=== PATIENT | female | born 1945 | race Caucasian/White ===

== ENCOUNTER 2023-04-03 06:13 | Observation (INO) ==
--- NOTE | 2023-03-24 10:35 | PAT Medication Instructions ---
Medication Instructions Date of Service March 24, 2023 Home Medications calcium phosphate,dibasic 77 mg-vitamin D3 400 unit tablet 1 tab PO QDL fexofenadine 180 mg tablet 180 mg PO QAM gabapentin 100 mg tablet 200 mg PO HS gabapentin 100 mg tablet 300 mg PO QAM lisinopril 40 mg tablet 40 mg PO QAM meloxicam 7.5 mg tablet 7.5 mg PO BID metoprolol tartrate 25 mg tablet 25 mg PO QAM multivitamin 1 tab PO QAM simvastatin 40 mg tablet 40 mg PO HS ASK your surgeon for instructions meloxicam 7.5 mg tablet 7.5 mg PO BID DO NOT take the morning of surgery calcium phosphate,dibasic 77 mg-vitamin D3 400 unit tablet 1 tab PO QDL fexofenadine 180 mg tablet 180 mg PO QAM lisinopril 40 mg tablet 40 mg PO QAM multivitamin 1 tab PO QAM Take morning of surgery With a small sip of water, OTHERWISE NOTHING TO EAT OR DRINK AFTER MIDNIGHT: gabapentin 100 mg tablet 300 mg PO QAM metoprolol tartrate 25 mg tablet 25 mg PO QAM Take evening before surgery gabapentin 100 mg tablet 200 mg PO HS simvastatin 40 mg tablet 40 mg PO HS Other Notes If you have any questions please call us at [phone] or [phone] or [phone] or [phone]
--- NOTE | 2023-03-26 09:18 | Anesthesiology Consultation ---
Date of Service March 26, 2023 Assessment & Plan (1) Encounter for pre-operative examination: - COVID screening: Per assessment on 03/26: No known COVID-19 positive contacts or current COVID-19 related symptoms. Travel screen negative. Patient vaccinated. At surgeon discretion if preop Covid testing being done. - Outpatient joint assessment: Pt currently scheduled for inpatient pathway. If surgeon requests review for outpatient joint pathway, patient is not recommended candidate for outpatient joint program from anesthesia standpoint. - Dextroscoliosis/arthritis/DDD: Pt concerned with SAB/neuraxial anesthesia given history of lumbar issues. Lumbar x-ray from 10/2022 scanned into chart. Reviewed neuraxial anesthesia vs. GA. She states she is comfortable with either at this point and indicates she would defer to the type anesthesia decides would be recommended in her case- advised to discuss options further AM DOS. - Patient acceptable risk for surgery pending surgeon-ordered PCP preop evaluation (Yane Kemp, appt 03/27). Chart Review Chart Review: Patient seen in Pre Admission Testing Teaching & Discussion Pre-Anesthesia Teaching/Discussion Notes: Instructed NPO after midnight before surgery,except medications with 15 cc of water. Medication instructions provided according to the PAT guidelines. History Surgery Operation Date: 04/03/23 10:25 Proposed Procedures p Right Total Hip Arthroplasty - Andrew Kiser MD Height/Weight Height: 4 ft 10 in Weight: 67.9 kg Allergies Allergy/AdvReac Type Severity Reaction Status Date / Time Penicillins Allergy Intermediate hives Verified 03/24/23 08:45 Sulfa (Sulfonamide Allergy Intermediate hives Verified 03/24/23 08:45 Antibiotics) Medications Home Medications Medication Instructions Recorded Confirmed Last Taken calcium phosphate,dibasic 77 1 tab PO QDL 03/24/23 03/24/23 Unknown mg-vitamin D3 400 unit tablet fexofenadine 180 mg tablet 180 mg PO QAM 03/24/23 03/24/23 Unknown gabapentin 100 mg tablet 200 mg PO HS 03/24/23 03/24/23 Unknown gabapentin 100 mg tablet 300 mg PO QAM 03/24/23 03/24/23 Unknown lisinopril 40 mg tablet 40 mg PO QAM 03/24/23 03/24/23 Unknown meloxicam 7.5 mg tablet 7.5 mg PO BID 03/24/23 03/24/23 Unknown metoprolol tartrate 25 mg tablet 25 mg PO QAM 03/24/23 03/24/23 Unknown multivitamin 1 tab PO QAM 03/24/23 03/24/23 Unknown simvastatin 40 mg tablet 40 mg PO HS 03/24/23 03/24/23 Unknown lifitegrast 5 % eye drops in a 1 drp ophthalmic (eye) BID 03/26/23 03/26/23 Unknown dropperette (Xiidra) Past Medical History Medical History Environmental and seasonal allergies History of COVID-19 08/2022- sore throat, dry cough; resolved HTN (hypertension) Hyperlipidemia Exercise / Class Metabolic Activity III < 4 Walking/Shop/Light housework (one FS (no CP, no SOB)- occasional stair use but does go slowly in setting of worsening hip pain) Past Family History Family History Other No family history of adverse response to anesthesia Past Surgical History Surgical History History of tonsillectomy and adenoidectomy Hx of colonoscopy Hx of hysterectomy Nausea and vomiting after administration of anesthetic agent N/V day after last colonoscopy- thinks r/t lack of caffeine Past Anesthesia History No Hx of Anesthesia Complications (except single episode PONV (colonoscopy) and No Family Hx of Anesthesia Complications History of PONV History of PONV (singe episode (colonoscopy)) and Hx of Motion Sickness Social History Smoking Status: Never smoker Do You Dip or Chew Tobacco: No Hx Alcohol Use: Yes alcohol intake frequency: holidays/special occasions only Hx Substance Use: No substance use type: does not use Review of Systems Patient denies chest pain, shortness of breath, dyspnea on exertion, fever, chills, cough, wheezing, palpitations. Physical Exam Vital Signs VITALS BP 135/82 P 72 TEMP 98.3 SP02 95%RA RESP 16 PHYSICAL Mildly decreased cervical extension range of motion. Full TMJ range of motion. TMD 3 finger breaths Mallampati Score 3 Dentition: missing molars, + crowns Lungs: clear throughout to auscultation Cardiac: regular rate and rhythm, no murmurs noted Spine: kyphoscoliosis Carotid arteries: negative bruit Extremities: no LE edema Lab Results Anesthesia Preop Results Results Anesthesia Widget: WBC 4.95 K/ul (4.8-10.8) 03/26/23 Hgb 13.0 g/dl (12.0-16.0) 03/26/23 Hct 36.2 % (37.0-47.0) L 03/26/23 Plt 264 K/uL (130-400) 03/26/23 Na 136 mmol/L (136-145) 03/26/23 K 4.1 mmol/L (3.5-5.1) 03/26/23 Cl 104 mmol/L (98-107) 03/26/23 CO2 26 mmol/L (21-32) 03/26/23 BUN 17 mg/dl (6-23) 03/26/23 Creat 0.65 mg/dl (0.6-1.2) 03/26/23 Glucose Level 81 mg/dl (70-99(Fasting)) 03/26/23 PT 10.8 Seconds (9.0-12.0) 03/26/23 PTT 25.6 Seconds (21.0-31.0) 03/26/23 INR 1.0 (0.9-1.1) 03/26/23 Urine Color Yellow 03/26/23 Urine Appearance Clear (Clear) 03/26/23 Urine pH 8.0 (4.5-7.5) H 03/26/23 Urine Specific [place] 1.013 (1.000-1.030) 03/26/23 Urine Protein Negative (Negative) 03/26/23 Urine Glucose (UA) Negative (Negative) 03/26/23 Urine Ketones Negative (Negative) 03/26/23 Urine Blood Negative (Negative) 03/26/23 Urine Nitrite Negative (Negative) 03/26/23 Urine Bilirubin Negative (Negative) 03/26/23 Urine Urobilinogen Negative (Negative) 03/26/23 Urine Leukocyte Esterase Negative (Negative) 03/26/23 Blood Type A Negative 03/26/23 Antibody Screen NEGATIVE 03/26/23 Testing Electrocardiogram Date: 03/26/23 NSR at 66bpm. Other Testing Lumbar spine xray (10/14/22) Five lumbar-type vertebral bodies. Lumbar dextroscoliosis. Mild retrolisthesis of L2 on L3 and L3 on L4. [id number] multilevel intervertebral disc degeneration throughout the lumbar spine, greatest L1-2, L2-3, and L5-S1. Multilevel facet osteoarthritis. No fracture or aggressive osseous lesion identified. Mild bilateral sacroiliac osteoarthritis. Osteoarthritis of both hips, severe on the right and [id number] on the left. COVID-19 Risk Screen Screening Information COVID-19 Screen Date: 03/26/23 Exposure 21 Days Family/Household +COVID Last 21 Days: No Exposure 10 Days Any COVID Exposure Last 10 Days: No Symptoms Last 10 Days Experienced COVID Sx Last 10 Days: No + COVID 0-90 Days COVID + in Last 0-90 Days: No
[~2023-04-03 06:13] MED LIST: ACETAMINOPHEN 500 MG TAB PO SCH; ALLERGY Noted to ORDERED Medication SCH; FAMOTIDINE 20 MG TAB PO SCH; LR 500ML BOLUS, THEN 15ML/HR IV SCH; LR 60ML/HR IV SCH; ROPIVACAINE 0.5% HCL/PF 150 MG, BUPIVACAINE 0.75% MPF 20 ML, EPINEPHrine 0.15 MG, Ketor... INFIL SCH; Scopolamine 1 MG TDSY TD SCH; TRANEXAMIC ACID 1,000 MG **IV Intra-op IV SCH; TRANEXAMIC ACID 1,000 MG **IV Pre-op IV SCH; ceFAZolin 2000MG 2,000 MG/15 ML SYR IV SCH; dexAMETHasone 4 MG TAB PO SCH; traMADol HCL 50 MG TABLET PO SCH
[2023-04-03] MEDS ORDERED: BUPIVACAINE 0.5 % 5 MG/1 ML PF 10ML VIAL ONE (06:24)
[2023-04-03] MEDS ORDERED: Nursing to Pharmacy Communication SCH (07:00)
[2023-04-03] MEDS ORDERED: MIDAZOLAM HCL 1 MG/ML 2ML VIAL ONE (07:19)
[2023-04-03] MEDS ORDERED: PROPOFOL IV EMULSION 10 MG/ML 20 ML VIAL IV ONE ×3 (07:19→08:37)
[2023-04-03] MEDS ORDERED: ONDANSETRON INJ 2 MG/ML 2 ML VIAL ONE (07:19)
[2023-04-03] MEDS ORDERED: LIDOCAINE 2% 2 ML VIAL/AMP(20MG/ML) INFIL ONE (07:19)
[2023-04-03] MEDS ORDERED: DEXAMETHASONE SOD INJ 4 MG/ML VIAL ONE (07:19)
[2023-04-03] MEDS ORDERED: fentaNYL citrate PF 100 MCG/2 ML VIAL ONE (07:20)
[2023-04-03] MEDS ORDERED: ORTHO JOINT ANESTHETIC ONE (07:51)
--- NOTE | 2023-04-03 08:02 | History & Physical Bridge Note ---
Date of Service April 03, 2023 History & Physical Bridge Note I have examined the patient, reviewed the History & Physical and in the interval since the performance of the History & Physical I have noted the following changes of clinical significance: no changes noted
[2023-04-03] MEDS: ceFAZolin 2000MG 2,000 MG/15 ML SYR IV SCH (08:20)
[2023-04-03] MEDS ORDERED: ATROPINE SULFATE 0.1 MG/ML 10ML SYR IV PRN (08:57)
[2023-04-03] MEDS ORDERED: ONDANSETRON INJ 2 MG/ML 2 ML VIAL IV PRN ×2 (08:57→10:06)
[2023-04-03] MEDS ORDERED: HYDROmorphone INJ 1 MG/ML SYRINGE IV PRN ×2 (08:57→10:06)
[2023-04-03] MEDS ORDERED: ePHEDrine sulfate 50 MG/ML AMP IV PRN (08:57)
[2023-04-03] MEDS ORDERED: fentaNYL citrate PF 100 MCG/2 ML VIAL IV PRN (08:57)
[2023-04-03] MEDS ORDERED: ePHEDrine sulfate 50 MG/ML SYR ONE (09:11)
--- NOTE | 2023-04-03 09:51 | Operative Report ---
Post Operative Report Pre & Post Diagnosis Pre-op diagnosis: Right hip arthritis Postoperative diagnosis: Right hip arthritis Operation Date: 04/03/23 08:15 I identified the patient and participated in the time-out.: Yes Procedure Operation Date: 04/03/23 08:15 Right total hip arthroplasty Surgeon Andrew Kiser MD Street Vendor Bria Voss PA-C. Estimated Blood Loss 50 Findings Consistent with Post-Op Diagnosis Specimens None Anesthesia Type Spinal MAC Complications none Disposition Disposition: Recovery Room Indications 77-year-old female with right hip arthritis refractory to conservative management. X-rays demonstrate smhy-ce-snei disease. I had a long discussion with her about the risks and benefits of surgery, alternatives, and expected outcomes. After reviewing all these she elected proceed with surgery. All questions were answered. Informed consent was signed. Description of Procedure Patient was identified in the preoperative holding area where the surgical site, right hip, was marked. A spinal anesthetic was placed, then the patient was brought back to the main operating room, placed in the operating table and moved into the lateral decubitus position. Axillary roll was placed. All bony prom inences were padded. Perioperative antibiotics and tranexamic acid 1 gram IV were administered. Operative extremity was prepped and draped in the normal sterile fashion. Prior to incision a multidisciplinary timeout was called. All in the room were in agreement. We began by making an incision for a posterior approach to the hip. We dissected down through subcutaneous tissues to the level of the fascia. The fascia was incised in line with the incision. Charnley bow was placed. Fatty tissue was reflected posteriorly off the back of the greater trochanter to expose the piriformis and short external rotators of the hip. The piriformis and short external rotators were dissected off the posterior aspect of the hip. A box cut was made in the capsule. Inferior hip capsule was released off the femur. The femoral head was dislocated. The femoral neck cut was made at our preoperative template. The acetabulum was then exposed. The labrum was sharply excised. Contents of the cotyloid fossa were removed with electrocautery. We then began reaming at a size 8 mm less than our preoperative template. We reamed up by [address] the way up to a size 50 mm cup. This gave us good bleeding cancellus bone circumferentially. The acetabulum was then irrigated out and dried. The real [place] Gription cup was then impacted down into position with 45 degrees of lateral opening and 25 degrees of anteversion. A single cancellous bone screw was placed up into the ilium. Excellent fixation was obtained. A trial liner for a 43 mm outer diameter dual mobility femoral head was then placed. Next we turned our attention to the femur. The lateral neck was removed with a box osteotome. Intramedullary guide was used followed by the lateralizing reamer. We then reamed up to a size 3 Coles stem. We then broached all the way up to a size 3. We began trialing with a standard offset neck and a +4 head. Hip was reduced. Leg lengths were symmetric. The hip was stable in extension and external rotation, and stable in the sleeper position. At 90 degrees of hip flexion the hip could be internally rotated 60 degrees before levering out of the cup. I was very happy with the stability exam. Therefore the hip was dislocated and the femoral trial was removed. The acetabulum was re-exposed, and the trial liner was removed. A metal dual mobility 50/43 liner was then impacted into the shell. The locking mechanism was checked to ensure that it had engaged which it had. The femur was re-exposed. The femoral canal was irrigated and dried. The real size 3 standard offset Coles femoral stem was opened up. This was impacted down into position. It sat at the same level as the femoral trial. Therefore the dual mobility head, including a 43/22 polyethylene outer component and a 22 mm metal in her head with a +4 offset was opened up, assembled on the back table, and gently impacted down onto the trunnion. The hip was atraumatically reduced. Another 1 gram of IV tranexamic acid was started prior to closure. The wound was irrigated out with sterile Betadine solution. The periarticular injection cocktail was then placed. The short external rotators, piriformis, and posterior capsule were repaired through drill holes in the greater trochanter using #2 Vicryl. The fascia was run with a looped #1 PDS. The subcutaneous layer was closed with #1 PDS. The dermal layer was closed with 2-0 Vicryl. Zip line was used for the skin followed by a Silverlon dressing. A compressive dressing was then placed. The patient was then rolled supine. Leg lengths were rechecked and were symmetric. An abduction pillow was placed. Sedation was lifted and the patient was transferred to the recovery room in stable condition. Summary of implants: Depuy [place] Gription Acetabular Shell Sector Cup, 50 mm outer diameter [place] Cancellous bone screw, 6.5 x 40 mm Cairo 50/43 metal dual mobility liner Bi mentum polyethylene liner 43/22 outer head 22+4 metal inner head DePuy Coles Femoral stem with [place], 12/14 taper, size 3 standard offset Postoperative course: Patient will be admitted to the hospital from the recovery room. Patient will be weightbearing as tolerated with posterior hip precautions. Aspirin for DVT prophylaxis I attest to the content of the Intraoperative Record and any orders documented therein. Any exceptions are noted below.
--- NOTE | 2023-04-03 10:03 | Operative Report ---
Post Operative Report Pre & Post Diagnosis Operation Date: 04/03/23 08:15 Pre-Op Diagnosis: Right hip Osteoarthritis Post-Op Diagnosis: Right hip Osteoarthritis I identified the patient and participated in the time-out.: Yes Procedure Operation Date: 04/03/23 08:15 Actual Procedures p Right Total Hip Arthroplasty(Right) - Andrew Kiser MD Surgeon Dr. Andrew Kiser Machine Etcher Bria Voss PA-C. no fellow available Estimated Blood Loss 50 Findings Consistent with Post-Op Diagnosis Specimens none Complications none Disposition Accompanied Patient To Recovery: No Description of Procedure Please refer to Dr. Kiser's operative note for specifics. I was present during the entire case. I assisted with positioning, draping, retracting, wound closure and dressing application. Assisted transferring pt to liter. Patient left the OR in stable condition I attest to the content of the Intraoperative Record and any orders documented therein. Any exceptions are noted below.
[2023-04-03] MEDS ORDERED: bisacodyL 10 MG SUPP PR PRN (10:06)
[2023-04-03] MEDS ORDERED: NALOXONE HCL 0.4 MG/1 ML VIAL/CARP IV PRN (10:06)
[2023-04-03] MEDS ORDERED: MAGNESIUM HYDROXIDE SUSP 30 ML UDC PO PRN (10:06)
[2023-04-03] MEDS ORDERED: METOCLOPRAMIDE HCL INJ 5 MG/ML 2 ML VIAL IV PRN (10:06)
[2023-04-03] MEDS ORDERED: ESMOLOL HCL INJ 10 MG/ML 10ML VIAL IV ONE (10:41)
[2023-04-03] MEDS ORDERED: SODIUM CHLORIDE 0.9% PF INJ 10 ML VIAL ONE (10:41)
--- NOTE | 2023-04-03 11:23 | Anesthesiology Progress Note ---
Date of Service April 03, 2023 Anesthesia Post Procedure Vital Signs Vital Signs: Temp Pulse Pulse Resp BP BP Pulse Ox 04/03/23 10:21 36.3 C L 68 18 110/63 95 04/03/23 11:00 75 14 120/62 94 04/03/23 10:50 36.0 C L 71 14 123/61 94 04/03/23 10:40 70 12 122/59 L 94 04/03/23 10:10 65 16 129/65 98 04/03/23 10:30 67 14 126/61 94 04/03/23 10:20 73 19 120/66 97 04/03/23 10:00 67 16 111/59 L 98 04/03/23 09:58 36.0 C L 76 14 106/57 L 96 04/03/23 06:47 36.5 C 71 18 141/75 H 93 O2 Del Method O2 Flow Rate 04/03/23 10:21 Room Air 04/03/23 11:00 Room Air 04/03/23 10:50 Room Air 04/03/23 10:40 Room Air 04/03/23 10:10 Oxymask 3 04/03/23 10:30 Room Air 04/03/23 10:20 Room Air 04/03/23 10:00 Oxymask 6 04/03/23 09:58 Oxymask 6 04/03/23 06:47 Room Air Pain Intensity Right Hip: Pain Intensity: 0 Transfer of Care Handoff Completed per policy Notes Mental Status: alert / awake / arousable and participated in evaluation Nausea / Vomiting: adequately controlled Pain: adequately controlled Airway Patency, RR, SpO2: stable & adequate BP & HR: stable & adequate Hydration State: stable & adequate Neuraxial Anesthesia: was administered Anesthetic Complications: no major complications apparent and Pt Satisfied with anesthetic care
[2023-04-03] MEDS: oxyCODONE HCL IR 5 MG TAB (IMMEDIATE RELEASE) PO PRN ×2 (11:55→17:11)
[2023-04-03] MEDS: SODIUM CHLORIDE 0.9% 1000ML 1,000 ML IV SCH ×2 (11:57→20:23)
[2023-04-03] MEDS: ACETAMINOPHEN 500 MG TAB PO SCH ×2 (13:39→21:26)
[2023-04-03] MEDS: Scopolamine CHECK PATCH PLACEMENT SCH (15:58)
--- NOTE | 2023-04-03 16:12 | XRay Report ---
SINGLE VIEW PELVIS; SINGLE VIEW RIGHT HIP CLINICAL HISTORY: Postoperative examination. FINDINGS: An AP portable view of the hips and lower pelvis with a crosstable lateral portable view of the right hip are compared to study dated 03/26/2023. A bipolar right hip arthroplasty is in near-arely tomic alignment. A single cortical lag screw transfixes the acetabular cup. No acute fracture is iden tified. There are expected postoperative changes overlying the right hip including subcutaneous gas a nd soft tissue swelling. Moderate arthritic change is seen in the left hip. There is degenerative scl erosis of the sacroiliac joints and pubic symphysis. IMPRESSION: Expected postoperative findings status post right hip arthroplasty. No acute fracture is seen. ACT 112: Negative or not required by law. Electronically signed by: Elliott Ceron M.D. 04/03/2023 4:11 PM
[2023-04-03] MEDS: ASPIRIN 81 MG ECTAB PO SCH (20:10)
[2023-04-03] MEDS: MELOXICAM 7.5 MG TAB PO SCH (20:11)
[2023-04-03] MEDS: DOCUSATE SODIUM 100 MG CAP PO SCH (20:23)
[2023-04-03] MEDS ORDERED: SENNA 8.6 MG TAB PO SCH (21:00)
[2023-04-03] MEDS ORDERED: SIMVASTATIN 40 MG TAB PO SCH (21:00)
[2023-04-03] MEDS ORDERED: GABAPENTIN 100 MG CAP PO SCH (21:00)
[2023-04-04] MEDS: ceFAZolin 2000MG 2,000 MG/15 ML SYR IV SCH (00:38)
[2023-04-04] MEDS: Scopolamine CHECK PATCH PLACEMENT SCH ×2 (00:38→07:15)
[2023-04-04] MEDS: oxyCODONE HCL IR 5 MG TAB (IMMEDIATE RELEASE) PO PRN ×2 (01:06→07:14)
[2023-04-04] MEDS: ACETAMINOPHEN 500 MG TAB PO SCH (05:42)
[2023-04-04 06:24] LABS: Hematocrit (blood only) 29.9 % (37.0-47.0); Hemoglobin 10.5 g/dl (12.0-16.0); Mean Corpuscular Hemoglobin 34.4 pg (25.0-34.0); Mean Corpuscular Hgb Conc 35.1 g/dL (32.0-36.0); Mean Platelet Volume 10.4 fL (9.4-12.4); Platelet Count 190 K/uL (130-400); RDW Coefficient of Variation 12.6 % (11.5-14.5); RDW Standard Deviation 44.1 fL (36.4-46.3); Red Blood Count 3.05 M/uL (4.20-5.40); White Blood Count 10.58 K/ul (4.8-10.8)
[2023-04-04 06:50] LABS: BUN Creatinine Ratio 17.9 (10-20); Calcium 8.3 mg/dl (8.6-10.3); Creatinine Clr Calc Pharmacy 69.2 ml/min; Est GFR (Non-African American) 90.6 ml/min; Potassium 4.2 mmol/L (3.5-5.1)
[2023-04-04] MEDS: MELOXICAM 7.5 MG TAB PO SCH (07:18)
[2023-04-04] MEDS ORDERED: FEXOFENADINE HCL 180 MG TAB PO SCH (09:00)
[2023-04-04] MEDS ORDERED: METOPROLOL TARTRATE 25 MG TAB PO SCH (09:00)
[2023-04-04] MEDS ORDERED: MULTIVITAMIN TAB PO SCH (09:00)
[2023-04-04] MEDS ORDERED: GABAPENTIN 100 MG CAP PO SCH (09:00)
[2023-04-04] MEDS ORDERED: lisinopril 40 MG TAB PO SCH (09:00)
[2023-04-04] MEDS ORDERED: NON-FORMULARY MEDICATION (Multivitamin Tablet) PO SCH (09:00)
[2023-04-04] MEDS: DOCUSATE SODIUM 100 MG CAP PO SCH (09:01)
[2023-04-04] MEDS: ASPIRIN 81 MG ECTAB PO SCH (09:01)
--- NOTE | 2023-04-04 09:43 | Orthopedic Progress Note ---
Date of Service April 04, 2023 Assessment & Plan (1) S/P total hip arthroplasty: Plan: Patient is postop day 1 status post right total hip arthroplasty Patient is doing well. She her pain is controlled with oral medication. She will continue with hip precautions She will continue with weightbearing as tolerated with walker while maintaining hip precautions Recommend 81 mg aspirin twice a day for DVT prophylaxis She will continue with DANIELE hose for 6 weeks Continue with abduction pillow for 6 weeks She was advised on keeping the dressing intact may get a shower not to submerge in water She will be discharged today to home with home health services She will keep her follow-up appointment as scheduled and discharge instructions PDMP was queried prescription for narcotic was sent. She was advised she may continue with Tylenol for in between and to take sparingly. We discussed dosage side effects and risk. She is on meloxicam twice a day we will continue with this. Patient's questions were answered to her satisfaction. She was advised if any concerns or questions to contact the office sooner. Patient was given the number and verbalized understanding Present on Admission?: Yes Admission and Anticipated Discharge Date Admission Date: April 03, 2023 Subjective Patient is a 77-year-old female who is an inpatient Dr. Jeffery garnica. She is status post a right total hip arthroplasty postop day 1. She was seen bedside this AM. She is alert and oriented x3 no acute distress. She is pleasant and conversive. She states she has mild pain in the right hip and rates it as 5- 6/10. She states she was is given pain medication and feels this is helping her. She states she feels she is ready to go home. Physical therapy had been in and she feels she is doing well with ambulating. She is aware and able to verbalize her hip precautions. She offers no concerns. She denies any fever, c hills, chest pain, shortness of breath dizziness, nausea or vomiting. She denies any calf pain. Review of Systems Review of Systems: Please refer to HPI Physical Exam Physical Exam: General: Patient is alert and oriented x3 no acute distress conversive and pleasant Integumentary/musculoskeletal:. Right lower extremity dressed that is intact. Negative for any drainage on the outer layer. She has small amount of drainage on the Silverlon dressing. This was removed. The incision is well approximated with pernell. Negative for any active bleeding or drainage. Negative for any erythema. New dressing applied, Silverlon. Patient has mild tenderness surrounding the area negative for any fluctuance or induration. Patient is able to actively flex hip with standing. She returned to seated position. She is able to tolerate knee extension and flexion ankle dorsiflexion plantarflexion all without pain. She has no calf tenderness. Her calf is soft. Negative Homans. Dorsal pedis pulses 2+. Right lower extremity is neurovascular intact. Results & Data Vital Signs (Past 12 Hours) Vital Signs Temp Pulse Resp BP Pulse Ox O2 Del Method 04/04/23 07:03 36.6 C 68 18 170/74 H 98 Room Air 04/04/23 02:42 36.5 C 68 16 110/65 97 Room Air 04/03/23 23:07 36.5 C 69 16 121/69 97 Room Air Laboratory Results 04/04/23 04/04/23 Range/Units 05:32 05:32 WBC 10.58 (4.8-10.8) K/ul RBC 3.05 L (4.20-5.40) M/uL Hgb 10.5 L (12.0-16.0) g/dl Hct 29.9 L (37.0-47.0) % MCV 98.0 (80.0-100.0) fL MCH 34.4 H (25.0-34.0) pg MCHC 35.1 (32.0-36.0) g/dL RDW Std Deviation 44.1 (36.4-46.3) fL RDW Coeff of Angela 12.6 (11.5-14.5) % Plt Count 190 (130-400) K/uL MPV 10.4 (9.4-12.4) fL Sodium 138 (136-145) mmol/L Potassium 4.2 (3.5-5.1) mmol/L Chloride 109 H (98-107) mmol/L Carbon Dioxide 25 (21-32) mmol/L Anion Gap 4 (3-11) BUN 10 (6-23) mg/dl Creatinine 0.56 L (0.6-1.2) mg/dl Est Cr Clr Drug Dosing 69.2 ml/min Est GFR ( Amer) 105.0 ml/min Est GFR (Non-Af Amer) 90.6 ml/min BUN/Creatinine Ratio 17.9 (10-20) Glucose 121 H (70-99(Fasting)) mg/dl Calcium 8.3 L (8.6-10.3) mg/dl Diagnostic Findings Hip/Pelvis X-Ray 04/03/23 10:06 SINGLE VIEW PELVIS; SINGLE VIEW RIGHT HIP CLINICAL HISTORY: Postoperative examination. FINDINGS: An AP portable view of the hips and lower pelvis with a crosstable lateral portable view of the right hip are compared to study dated 03/26/2023. A bipolar right hip arthroplasty is in near-anatomic alignment. A single cortical lag screw transfixes the acetabular cup. No acute fracture is identified. There are expected postoperative changes overlying the right hip including sub cutaneous gas and soft tissue swelling. Moderate arthritic change is seen in the left hip. There is degenerative sclerosis of the sacroiliac joints and pubic symphysis. IMPRESSION: Expected postoperative findings status post right hip arthroplasty. No acute fracture is seen. ACT 112: Negative or not required by law. Electronically signed by: Elliott Ceron M.D. 04/03/2023 4:11 PM
[2023-04-04] MEDS ORDERED: CALCIUM 600MG + VIT D 400 IU TAB PO SCH (11:30)
--- NOTE | 2023-04-04 13:55 | Discharge Summary ---
Date of Service April 04, 2023 Admission HPI Per Admitting Provider Pt is a 77 y.o female who is a known pt to Dr. Kiser. she presents for her preoperative history and physical Examination for a right total hip arthroplasty with Dr. Gil off on 04/03/2023. She explains that she has had hip and buttock pain has been ongoing for a year. She states she had no fall or injury that provoked her symptoms. States the pain is mainly in the buttock area and on occasion will go into the groin. She does have a history of sciatica. She denies any radicular symptoms including pain or paresthesia in the right lower extremity. She states she did go to physical therapy where she had treatment for sciatica and this seems to resolve it. She states the pain in the buttock is limiting her with walking and distance she is utilizing a cane and this seems to help however she often has to rest. She states anytime she is standing or doing any kind of weightbearing activity she is limited and often has to sit down to rest. She states doing functional household activities such as cooking and light cleaning seems to provoke her symptoms. She has been doing physical therapy and this seems to give her some relief but not long-lasting. She does enjoy traveling and feels like this is limiting her ability to enjoy sightseeing because of the pain. She has been taken meloxicam and feels this gives her temporary relief. She has tried modifying her activities without any lasting relief. She had imaging taken which revealed joint narrowing with subchondral sclerosis and subchondral cyst with osteophytes of the right hip joint. Due to lengthy course of failed conservative treatment with persistent pain limitations with functional activities patient will be taken the OR for a right total hip arthroplasty. She denies any cardiac or pulmonary conditions bleeding disorders, DVT, PE, OH, and MRSA infections, latex allergies or issues with anesthesia. She denies any allergy to metal she does have a history of an allergy to penicillin and sulfa drugs. She reports hives with these she denies any anaphylaxis or swelling of these drugs taken. Review of systems: Constitutional: Denies fevers, chills, night sweats, unexpected weight gain or weight loss Eyes: Denies any loss of vision or blurred vision, drainage or discharge ENT: Denies any loss of hearing, ear pain, nasal pain congestion or nasal drainage, sore throat Cardiac: Denies any chest pain, palpitations, slow heart rate, fast heart rate or dizziness Pulmonary: Denies any coughing, shortness of breath or wheezing Gastrointestinal: Denies any stomach pain, diarrhea vomiting, blood in the stool Genitourinary: Denies any blood in urine, burning when urinating, frequency, infections of kidney stones Musculoskeletal: Refer to HPI Integumentary: Denies any rash, dry skin or skin sores or wounds Neurologic: Denies any confusion, paresthesia or headaches Psychiatric: Denies any anxiety depression, or thoughts of self-harm or anyone else. Physical exam Vitals and measurements BP: 140/84 space SPO2: 96% General: Patient is alert and oriented x3 wearing a mask. No acute distress well-dressed well-nourished HEENT: Head atraumatic normocephalic. Eyes extraocular movements intact. Pupils equal round and reactive to light. Sclera are normal. Ears: Hearing is grossly normal Nose: Nares are patent bilaterally. Throat: Oropharynx clear. Mucous membranes moist good dilatation. Uvula midline negative for erythema Neck: Supple. No lymphadenopathy. Nontender to palpation. Full range of motion Lungs: Clear to auscultation bilaterally. No adventitious sounds. No accessory muscle use. Heart: Regular rate and rhythm normal S1 and S2. Normal murmurs rubs or gallops appreciated. Abdomen: Soft nontender nondistended. Normal bowel sounds heard in all 4 quadrants Musculoskeletal. Skin is normal color and temperature of her hips. Patient has palpable tenderness over lateral aspect of hip and into buttock area. Mild tenderness in the groin with palpation. Negative rocker sign. Positive Karen' s. Hip range of motion is limited to flexion to approximately 100 degrees of and complains of pain. External rotation 40 degrees internal rotation 5 degrees almost absent. She has pain with internal rotation in the groin. Leg length appears to be equal. Sensation is intact bilateral lower extremities. Able to fully dorsiflex and plantarflex ankle. Dorsal pedis pulse 2. Gait is antalgic with single-point cane. Integumentary. Normal in color negative for abrasion or rash. Neuro: Cranial nerves II through XII grossly intact Psychiatric: Good eye contact normal mood and affect, cooperative during exam nonsuicidal Diagnostic results: X-ray: Joint narrowing and osteophyte subchondral sclerosis with subchondral cyst on the left hip Assessment and plan: Osteoarthritis of right hip patient is scheduled for right total hip arthroplasty with Dr. Gil off on 04/03/2023. She will be admitted to [facility] for 23-hour observation we did discuss most likely be discharged medically stable for 11 AM the next day. Risk and complication of the procedure were explained to the patient including but are not limited to, infection, pain, bleeding, scarring, nerve and blood vessel damage, wound problems, weakness, stiffness, incomplete relief of symptoms, hardware failure, fracture, malunion, nonunion, tendon, ligament injury, blood clots, embolisms, heart attack, stroke and . All questions were answered informed consent was obtained. She is given an order for preoperative lab work and is scheduled for medical clearance prior to surgery on 03/27/2023. She is aware of the COVID- 19 risk she is currently asymptomatic for any COVID-19 symptoms postop course was discussed. She has intentions of returning home with her spouse recovery she states she lives in one-story home with a bathroom bedroom on the floor. She does have 2 stairs to get into the home. She was provided an order for a walker with wheels at today's visit. She states she feels she is going to be able to borrow somebody's. She was advised on a hip kit and patient states she will look on [email or web address] for this. She and I discussed postoperatively she will have hip precautions. We did review [facility] joint handbook and this was provided the patient. She is aware to call the hospital on Friday between 2 and 7 to get a surgical time on morning. She is aware on 04/02/2020 23-11 50 9 PM nothing to eat or drink after midnight. She will be instructed to [facility] clinic on medications take the morning of surgery. She was upon utilizing [facility] that we will provide her to that at the PAT clinic. 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 She will continue with aspirin for 30 days. She will be treated with postop pain with narcotic. We did discuss risk and benefits of using narcotic for postop pain control. We discussed utilizing ice and exercise. Narcotic will be prescribed to her upon discharge [facility]. She has a postoperative follow-up appointment in our office on 04/16/2023 with BRITTNY. All questions were answered. She knows to call with any further problems, questions or concerns. Admission Exam (Per Admitting) Constitutional WD/WN, vitals as above Eyes EOM intact bilaterally ENMT external ear and nose normal, oropharynx normal Respiratory normal respiratory effort, lungs clear to auscultation Cardiovascular RRR, no murmur, no edema Specialty Data Orthopedic Hip/Pelvis X-Ray 04/03/23 10:06 SINGLE VIEW PELVIS; SINGLE VIEW RIGHT HIP CLINICAL HISTORY: Postoperative examination. FINDINGS: An AP portable view of the hips and lower pelvis with a crosstable lateral portable view of the right hip are compared to study dated 03/26/2023. A bipolar right hip arthroplasty is in near-anatomic alignment. A single cortical lag screw transfixes the acetabular cup. No acute fracture is identified. There are expected postoperative changes overlying the right hip including subcutaneous gas and soft tissue swelling. Moderate arthritic change is seen in the left hip. There is degenerative sclerosis of the sacroiliac joints and pubic symphysis. IMPRESSION: Expected postoperative findings status post right hip arthroplasty. No acute fracture is seen. ACT 112: Negative or not required by law. Electronically signed by: Elliott Ceron M.D. 04/03/2023 4:11 PM 04/04/23 04/04/23 Range/Units 05:32 05:32 WBC 10.58 (4.8-10.8) K/ul RBC 3.05 L (4.20-5.40) M/uL Hgb 10.5 L (12.0-16.0) g/dl Hct 29.9 L (37.0-47.0) % MCV 98.0 (80.0-100.0) fL MCH 34.4 H (25.0-34.0) pg MCHC 35.1 (32.0-36.0) g/dL RDW Std Deviation 44.1 (36.4-46.3) fL RDW Coeff of Angela 12.6 (11.5-14.5) % Plt Count 190 (130-400) K/uL MPV 10.4 (9.4-12.4) fL Sodium 138 (136-145) mmol/L Potassium 4.2 (3.5-5.1) mmol/L Chloride 109 H (98-107) mmol/L Carbon Dioxide 25 (21-32) mmol/L Anion Gap 4 (3-11) BUN 10 (6-23) mg/dl Creatinine 0.56 L (0.6-1.2) mg/dl Est Cr Clr Drug Dosing 69.2 ml/min Est GFR ( Amer) 105.0 ml/min Est GFR (Non-Af Amer) 90.6 ml/min BUN/Creatinine Ratio 17.9 (10-20) Glucose 121 H (70-99(Fasting)) mg/dl Calcium 8.3 L (8.6-10.3) mg/dl Discharge Data Procedures Performed Operation Date: 04/03/23 08:15 Actual Procedures p Right Total Hip Arthroplasty(Right) - Andrew Kiser MD Hospital Course (1) S/P total hip arthroplasty: Patient is postop day 1 status post right total hip arthroplasty Patient is doing well. She her pain is controlled with oral medication. She will continue with hip precautions She will continue with weightbearing as tolerated with walker while maintaining hip precautions Recommend 81 mg aspirin twice a day for DVT prophylaxis She will continue with DANIELE hose for 6 weeks Continue with abduction pillow for 6 weeks She was advised on keeping the dressing intact may get a shower not to submerge in water She will be discharged today to home with home health services She will keep her follow-up appointment as scheduled and discharge instructions PDMP was queried prescription for narcotic was sent. She was advised she may continue with Tylenol for in between and to take sparingly. We discussed dosage side effects and risk. She is on meloxicam twice a day we will continue with this. Patient's questions were answered to her satisfaction. She was advised if any concerns or questions to contact the office sooner. Patient was given the number and verbalized understanding Discharge Instructions Patient had an uneventful hospital course. She has been able to rest overnight. Her pain is well controlled on oral medications. She has participated in physical therapy this morning and is doing great. She is able to ambulate with a walker safely. She is able to maintain and verbalize hip precautions. She will be discharged home with home health. She is aware of utilizing the DANIELE hose for 6 weeks as well as the hip abduction pillow when sleeping. She was pre scribed a narcotic that was sent to her pharmacy. She is on Mobic she will continue with this twice a day. She will use aspirin 81 mg for DVT prophylaxis. She has a scheduled appointment in our office for suture removal. Patient was aware to contact the office if any concerns or questions. Detailed instructions were provided to patient upon discharge.
== END 2023-04-04 10:33 | disposition home health service (06) ==
LOC: ASU 06:13 → 3E 06:13